=== PATIENT | male | born 1930 | race Caucasian/White ===

== ENCOUNTER 2018-05-15 12:01 | Emergency (ER) | payer MEDICARE ==
[2018-05-15 13:26] LABS: Bilirubin Negative (Negative); Blood, Urine Negative (Negative); Glucose, Urine (Dipstick) Negative (Negative); Leukocyte Negative (Negative); Nitrite Negative (Negative); Protein, Urine (Dipstick) Negative (Neg-Trace); Specific Gravity, Urine 1.015 (1.005-1.030); Urobilinogen 0.2 mg/dL (0.2-1.0)
[2018-05-15 13:27] LABS: Clarity Slightly Cloudy (Clear)
== END 2018-05-15 13:05 | disposition home or self-care (01) ==
LOC: SCSER 12:01
DX: R33.9 Retention of urine, unspecified (principal); I25.10 Atherosclerotic heart disease of native coronary artery without angina pectoris
CPT/HCPCS: 81003; 87086

== ENCOUNTER 2018-05-15 16:47 | Emergency (ER) | payer MEDICARE ==
--- NOTE | 2018-05-15 18:43 | RAD ---
KUB: 05/15/18 HISTORY: Abdominal pain. The bowel gas pattern is appears nonobstructive. Surgical clips are seen in the right upper quadrant. 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 IMPRESSION: No acute findings. POS: ANJELICAH
[2018-05-15] MEDS ORDERED: HYDROcodone/Acetaminophen 5/325 mg Tablet ONE (19:17)
== END 2018-05-15 19:27 | disposition left against medical advice (07) ==
LOC: SCSER 16:47
DX: T83.84XA Pain due to genitourinary prosthetic devices, implants and grafts, initial encounter (principal); I25.10 Atherosclerotic heart disease of native coronary artery without angina pectoris
CPT/HCPCS: 51702; 74018; 81003; 87086

== ENCOUNTER 2018-05-16 13:34 | Emergency (ER) | payer MEDICARE ==
[2018-05-16 15:27] LABS: Bilirubin Negative (Negative); Blood, Urine Large (Negative); Clarity CLEAR (Clear); Glucose, Urine (Dipstick) Negative (Negative); Leukocyte Small (Negative); Nitrite Negative (Negative); Protein, Urine (Dipstick) Trace mg/dL (Neg-Trace); Specific Gravity, Urine 1.014 (1.002-1.036)
[2018-05-16 15:33] LABS: Bacteria/HPF None Seen HPF (None Seen); Hyaline Casts/LPF 0-3 HYALINE CAST LPF (0-3 Hyaline); Pathc Cast-AUWi Flag 0.14 (0-2.49); Squamous Epithelial 0-3 HPF (0-3)
== END 2018-05-16 16:07 | disposition home or self-care (01) ==
LOC: ERS 13:34
DX: N32.89 Other specified disorders of bladder (principal); I25.10 Atherosclerotic heart disease of native coronary artery without angina pectoris; Z87.891 Personal history of nicotine dependence
CPT/HCPCS: 81003; 81015; 87086; 99283

== ENCOUNTER 2018-06-12 12:13 | Emergency (ER) | payer MEDICARE ==
[2018-06-12 13:00] LABS: Clarity CLOUDY (Clear)
[2018-06-12 13:04] LABS: Leukocyte Unable to Interpret (Negative); Nitrite Unable to Interpret (Negative); Specific Gravity, Urine 1.011 (1.002-1.036); pH, Urine 5.5 (5.0-9.0)
[2018-06-12 13:05] LABS: Bilirubin Unable to Interpret (Negative); Blood, Urine Unable to Interpret (Negative); Glucose, Urine (Dipstick) Unable to Interpret mg/dL (Negative); Protein, Urine (Dipstick) 300 mg/dL (Neg-Trace); Urobilinogen UNABLE TO INTERPRET mg/dL (0.2-1.0)
[2018-06-12 13:10] LABS: RBC/HPF GREATER THAN 50-TNTC HPF (0-3); Squamous Epithelial None Seen HPF (0-3); WBC/HPF 0-3 HPF (0-3)
[2018-06-12 13:11] LABS: Bacteria/HPF Rare-Few HPF (None Seen); Hyaline Casts/LPF NONE SEEN LPF (0-3 Hyaline)
[2018-06-12 14:16] LABS: #Basophils 0.1 thou/uL (0.0-0.2); #Eosinphils 0.4 thou/uL (0.0-0.7); #Monocytes 0.7 thou/uL (0.11-0.59); #Neutrophils 5.4 thou/uL (1.40-6.50); %Basophils 0.8 % (0.0-1.0); %Eosinophils 4.4 % (0.0-10.0); %Lymphocytes 23.8 % (21.0-51.0); %Monocytes 8.3 % (0.0-10.0); %Neutrophils 62.7 % (42.0-75.0); Hemoglobin 15.9 g/dL (14.0-18.0); Mean Corpuscular HGB CONC 33.1 g/dL (32.0-36.0); Mean Corpuscular Hemoglobin 31.2 pg (27.0-31.0); Mean Corpuscular Volume 94.2 fL (78.0-98.0); Mean Platelet Volume 8.3 fL (7.4-10.4); Platelet Count 135 thou/uL (130-400); RBC Distribution Width 13.7 % (11.5-14.5); Red Blood Cell (RBC) Count 5.09 mill/uL (4.70-6.10); White Blood Cell (WBC) Count 8.6 thou/uL (4.8-10.8)
[2018-06-12 14:37] LABS: Anion Gap 10 mmol/L (10-20); BUN (Urea Nitrogen) 20 mg/dL (8.4-25.7); Calc. Creatinine Clearance 0 mL/min (70-130); Carbon Dioxide 30 mmol/L (23-31); Chloride 109 mmol/L (98-107); Estimated GFR-MDRD 39; Glucose 117 mg/dL (83-110); Potassium 4.6 mmol/L (3.5-5.1); Sodium 144 mmol/L (136-145)
--- NOTE | 2018-06-12 15:41 | CT ---
CT ABDOMEN AND PELVIS WITH AND WITHOUT CONTRAST: Date: 06/12/18 HISTORY: Pain, hematuria, and blood clots. COMPARISON: None. FINDINGS: The lung bases are clear. No pericardial effusion. On the noncontrast portion of the examination, there is no nephroureterolithiasis or hydroureteroneph rosis. No secondary evidence of a recently passed stone. There is a large blood clot within the urinary bladder, which does not appear to have any enhancement . This measures 4.7 x 2.3 x 4.0 cm. 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 No abnormal enhancing mass is appreciated. No urothelial thickening. No urothelial mass. No enhancing renal mass. There are cysts within the left and right lobes of the liver. Spleen, pancreas, and adrenal glands ar e unremarkable. No retroperitoneal adenopathy. No dilated loops of large or small bowel. Extensive diverticular disease sigmoid colon without active current inflammation. 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 IMPRESSION: 1. Large blood clot within the urinary bladder without abnormal enhancing urothelial mass. 2. No nephroureterolithiasis or hydroureteronephrosis. No secondary evidence of a recently passed st one. 3. No abnormal enhancing renal mass. POS: ANJELICA
[2018-06-12] MEDS ORDERED: ISOVUE-370 76%-LOCM 1 ML ONE (16:41)
== END 2018-06-12 16:57 | disposition home or self-care (01) ==
LOC: ERS 12:13
DX: R31.9 Hematuria, unspecified (principal); I73.9 Peripheral vascular disease, unspecified; I25.10 Atherosclerotic heart disease of native coronary artery without angina pectoris; Z79.82 Long term (current) use of aspirin; Z87.891 Personal history of nicotine dependence; Z79.891 Long term (current) use of opiate analgesic
CPT/HCPCS: 74178; 80048; 81003; 81015; 85025; 96360; 96361